=== PATIENT | male | born 1970 | race Caucasian/White ===

== ENCOUNTER → 2023-11-22 14:17 | Outpatient (BNVA) | payer OTHER, SELFPAY | PROVIDERS: PCP Internal Medicine; Visit Provider Physician Assistant | DX: S40.011A Contusion of right shoulder, initial encounter (principal); S16.1XXA Strain of muscle, fascia and tendon at neck level, initial encounter; S39.012A Strain of muscle, fascia and tendon of lower back, initial encounter; W20.8XXA Other cause of strike by thrown, projected or falling object, initial encounter | CPT/HCPCS: 99203 ==

== ENCOUNTER → 2023-12-09 07:46 | Outpatient (BNVA) | payer OTHER, SELFPAY | PROVIDERS: PCP Internal Medicine; Visit Provider Physician Assistant Medical | DX: S40.011D Contusion of right shoulder, subsequent encounter (principal); S16.1XXD Strain of muscle, fascia and tendon at neck level, subsequent encounter; S46.811D Strain of other muscles, fascia and tendons at shoulder and upper arm level, right arm, subsequent encounter; S46.211D Strain of muscle, fascia and tendon of other parts of biceps, right arm, subsequent encounter; W20.8XXD Other cause of strike by thrown, projected or falling object, subsequent encounter | CPT/HCPCS: 99213 ==

== ENCOUNTER → 2023-12-20 13:55 | Outpatient (BNVA) | payer OTHER, SELFPAY | PROVIDERS: PCP Internal Medicine; Visit Provider Physician Assistant Medical | DX: S40.011D Contusion of right shoulder, subsequent encounter (principal); S16.1XXD Strain of muscle, fascia and tendon at neck level, subsequent encounter; S46.819D Strain of other muscles, fascia and tendons at shoulder and upper arm level, unspecified arm, subsequent encounter; S46.219D Strain of muscle, fascia and tendon of other parts of biceps, unspecified arm, subsequent encounter; W20.8XXD Other cause of strike by thrown, projected or falling object, subsequent encounter; M24.811 Other specific joint derangements of right shoulder, not elsewhere classified | CPT/HCPCS: 99213 ==

== ENCOUNTER 2024-01-14 20:18 | Outpatient (REF) | payer OTHER, SELFPAY ==
--- NOTE | ~2024-01-14 | MR_ITS ---
EXAMINATION: MR SHOULDER WITHOUT CONTRAST, RIGHT CLINICAL INFORMATION: Right shoulder pain. Limited range of motion. Contusion. COMPARISON: Right shoulder and scapula radiographs dated 11/22/2023. TECHNIQUE: MRI of the shoulder without contrast was performed on a high-field scanner. FINDINGS: ROTATOR CUFF: Moderate subscapularis tendinosis with articular surface partial tearing measuring up to 3 cm in ML dimension. Possible small full-thickness component to the tear distally. Minimal tendinosis of the junctional fibers. No muscle atrophy or fatty infiltration. BICEPS: Flattening of the proximal long head biceps tendon with medial subluxation as it drapes over the lesser tuberosity, consistent with longitudinal partial tearing. Fluid in the tendon sheath consistent with tenosynovitis. No full-thickness transverse tendon tear or tendon retraction. CORACOACROMIAL ARCH: The undersurface of the acromion is flat with no subacromial spur. Moderate acromioclavicular osteoarthritis. Trace fluid and edema within the subacromial-subdeltoid bursa, consistent with mild bursitis. LABRUM/CAPSULE: Linear fluid signal within the undersurface of the posterosuperior and superior labrum which could indicate a nondisplaced undersurface tear. Intact inferior joint capsule. GLENOHUMERAL JOINT/MARROW: Intact articular cartilage. No acute osseous injury. No marrow edema. MR/MR shoulder RT wo con IMPRESSION: 1. Moderate subscapularis tendinosis with articular surface partial tearing measuring 3 cm in ML dimension. Possible small full-thickness component to the tear distally. Minimal tendinosis of the junctional fibers. 2. Flattening/longitudinal partial tearing of the proximal long head biceps tendon with medial subluxation as it drapes over the lesser tuberosity. Associated tenosynovitis. 3. Moderate acromioclavicular osteoarthritis. Mild subacromial-subdeltoid bursitis. 4. Possible nondisplaced undersurface tear of the posterosuperior and superior labrum.
== END 2024-01-14 20:19 | disposition home or self-care (01) ==
LOC: HO.MRI 20:18
PROVIDERS: PCP Internal Medicine; Visit Provider Internal Medicine
DX: S40.011D Contusion of right shoulder, subsequent encounter (principal)
CPT/HCPCS: 73221

== ENCOUNTER → 2024-01-21 14:37 | Outpatient (BNVA) | payer OTHER, SELFPAY | PROVIDERS: PCP Internal Medicine; Visit Provider Physician Assistant Medical | DX: S46.121D Laceration of muscle, fascia and tendon of long head of biceps, right arm, subsequent encounter (principal); S16.1XXD Strain of muscle, fascia and tendon at neck level, subsequent encounter; S46.811D Strain of other muscles, fascia and tendons at shoulder and upper arm level, right arm, subsequent encounter; W20.8XXD Other cause of strike by thrown, projected or falling object, subsequent encounter | CPT/HCPCS: 99213 ==